=== PATIENT | female | born 1940 | race Caucasian/White ===

== ENCOUNTER 2022-04-11 07:52 | Day surgery (SDC) | payer OTHER, SELFPAY ==
[2022-04-11] VITALS (30 sets, daily range): BP systolic 103–162; BP diastolic 56–113; PULSE 61–108; RESP 16–20; TEMP 35.2–36.5; O2SAT 92–100; BMI 31.0
[2022-04-11] MEDS: fentaNYL 100 MCG/2 ML inj IVP (08:03)
[2022-04-11] MEDS: SODIUM CHLORIDE 0.9 % (FLUSH) 10 ML SYRINGE IVF (08:15)
[2022-04-11] MEDS: ACETAMINOPHEN 500 MG TABLET 1000 MG PO ×3 (08:15→22:55)
[2022-04-11] MEDS: LACTATED RINGERS 1000 ML 1,000 ML 100 ML IV (08:15)
[2022-04-11] MEDS: OXYCODONE (CR) 10 MG TAB.ER.12H PO (08:15)
[2022-04-11] MEDS: CELECOXIB 200 MG CAPSULE PO ×2 (08:15→21:01)
--- NOTE | 2022-04-11 08:30 | SUR.PREOP ---
TIME?OUT:?0831 PT/Teresa HOLLAND RN/Roopa WILL MDA?VERIFICATION?OF?SURGICAL?SITE,?PROCEDURE,?AND?CONSENT OBTAINED?PRIOR?TO?INVASIVE?PROCEDURE.
[2022-04-11] MEDS: MIDAZOLAM HCL 1 MG/ML inj IVP (08:31)
--- NOTE | 2022-04-11 08:58 | CRLHL7_ITS ---
For Patients: As a result of the Cures Act, medical imaging exams and procedure reports are released immediately into your electronic medical record. You may view this report before your referring provider. If you have questions, please contact your health care provider. INDICATION: Post operative right total knee arthroplasty TECHNIQUE: Knee radiograph 2 views right COMPARISON: None FINDINGS: Bone: No acute fractures or aggressive bone lesions are identified. Joint: The patient is status post a total knee arthroplasty with patellar resurfacing. No significant knee effusion is seen. Soft tissue: Anterior subcutaneous gas and joint gas are present from recent surgery. No radiopaque foreign bodies are seen. IMPRESSION: 1. There is an unremarkable postoperative appearance of the knee arthroplasty. Dictated by: Hermes Hameed MD @ 04/11/2022 13:18:14 (Electronically Signed)
[2022-04-11] MEDS: CEFAZOLIN 2 GM INJ IVP (09:05)
--- NOTE | 2022-04-11 09:36 | SUR.OPER ---
PATIENT QUESTIONS ANSWERED SATISFACTORILY PREOPERATIVELY.? PATIENT BROUGHT TO OR #3 PER CART AFTER BLOCK.? Patient positioned supine on OR #3 bed.?The perioperative?team supported arms bilaterally on arm boards.? Final approval of positioning by surgeon.?
--- NOTE | 2022-04-11 09:58 | SUR.OPER ---
RIGHT KNEE IRRIGATED W/3000cc NACL BAG AT 09:51.
--- NOTE | 2022-04-11 10:21 | PM.ORPRC ---
Procedure Note Date of procedure: 04/11/22 Procedure: PREOPERATIVE DIAGNOSIS: 1. Right knee osteoarthritis, primary, severe POSTOPERATIVE DIAGNOSIS: 1. Right knee osteoarthritis, primary, severe PROCEDURE: 1. Right total knee arthroplasty SURGEON: Michael Escamilla MD. FINAL INSTALLER INSPECTOR: Matheus Torres PA-C - Of note, a skilled commercial lending assistant was critical for this case to aid in patient positioning, tissue retraction, limb manipulation/positioning, and closure. ANESTHESIA: Spinal anesthetic IMPLANTS: DePuy J&J all cemented TKA - Attune PS femur size 4 regular, size for tibia, 5 poly spacer, 35 mm patella TOURNIQUET: 90 min at 300 torr EBL: 50 ml COMPLICATIONS: None evident INDICATIONS: The patient is a pleasant 81-year-old female who has experienced severe right knee pain and difficulty bearing weight. Workup included x-rays which revealed severe osteoarthrosis in the knee. Given the deformity, the dysfunction, and the pain, as well as the failure of nonoperative management, recommendation was made for surgery. FINDINGS: Grade 4 chondromalacia patellofemoral compartment and medial compartment with [id number] erosions and grooving into the femur. Moderate effusion upon entering the joint. Significant chondromalacia lateral compartment as well. DESCRIPTION OF PROCEDURE: Following a thorough discussion of risks, benefits, and alternatives consent was obtained and the right knee was marked. The patient was brought to the operating room and placed supine on the operating table. Induction of anesthesia was undertaken. 1 g IV Ancef and 1 g tranexamic acid was administered within 1 hr of incision preoperatively. Proper time-out was performed identifying proper patient, site, procedure. The operative extremity was prepped and draped in the appropriate sterile fashion using ChloraPrep after the patient was positioned supine with all bony prominences well padded. A longitudinal, anterior, midline skin incision was made starting approximately 3cm proximal to the superior pole of the patella and advanced distal to the tibial tubercle. A median parapatellar arthrotomy was created. A medial subperiosteal sleeve was created with knife, delgadillo elevator and curved osteotome. The retropatellar fatpad was resected and the synovium in the suprapatellar pouch excised to visualize the anterior femoral cortex. Femoral preparation was performed via an intramedullary guide. Step drill allowed access into the femoral canal. The distal cutting guide was placed with 5? of valgus and 10 mm cut on the distal femur. Femur was sized using a anterior referencing guide in 3? of external rotation. This found have a best fit with the sizing noted above. The 4 in 1 cutting block was then placed, and the distal femur shaped accordingly. The box cut was then created and the trial implant inserted to confirm appropriate fit. We turned our attention to the proximal tibia. Extramedullary guide was utilized for cutting with the goal of being 90 degree cut from the mechanical axis of the tibia in the varus/valgus plane utilizing tibial crest as the primary alignment. Initially a 2 mm resection was performed from the medial tibial plateau. Ultimately, balancing was achieved in both flexion and extension in both varus and valgus. The knee was able to achieve full extension as well comfortably. The patella was initially measured and found have a thickness of 17 mm. It was resected back to approximately 14 mm. It was sized to be a best fit with as noted above. This was drilled, trial placed. All trials were placed and found to have an excellent stability and balance. At this stage, trial implants were removed, the knee was thoroughly irrigated with normal saline, and the cement was mixed. After irrigation, the knee was thoroughly dried, and cement placed, with the real tibial and femoral implants placed along with the patella. Trial poly spacer was placed and confirmed to have excellent range of motion and full extension, and the real poly spacer opened and inserted. All extra cement was removed, and a 3 min Betadine soak performed. Finally, a final irrigation round with normal saline was performed. Closure performed with 0 Vicryl and #0 Stratafix for the quad tendon/retinaculum. 2-0 Vicryl for the subcutaneous and 4-0 Stratafix for subcuticular closure. Dressings were applied and the patient was awoken from anesthesia after the tourniquet deflated and transferred the PACU in stable condition. A skilled commercial lending assistant was critical for this case to aid in patient positioning, tissue retraction, bone exposure, limb manipulation/positioning, patient safety, and closure. PLAN: 1. Weight bear as tolerated operative extremity. 2. 23 hr perioperative antibiotics. 3. Ice. 4. PT/OT consults for ambulation assistance/mobility education. 5. Social work consult for discharge planning. 6. DVT prophylaxis with at SCDs, Anibal Hose, and aspirin twice daily.
--- NOTE | 2022-04-11 11:16 | W.ANESCHARGE ---
Anesthesia Charges Start Date/Time Anesthesia Start Date: 04/11/22 Anesthesia Start Time: 08:54 Stop Date/Time Anesthesia Stop Date: 04/11/22 Anesthesia Stop Time: 11:15 Summary Emergency: No Extremes of Age: Over 70-CPT 90079
[2022-04-11] MEDS: ONDANSETRON 2 MG/ML inj 4 MG IVP ×4 (11:21→17:33)
--- NOTE | 2022-04-11 11:56 | W.PM.NB ---
Nerve Block Nerve Block Date Seen: 04/11/22 Type of block requested by surgeon for post-operative analgesia: adductor canal Side: right Time out performed: Yes Verification of patient name: Yes Verification of date of : Yes Site marking: site marked Name of person performing procedure: Dutch Continuous monitoring Was continuous monitoring of O2 sat, B/P, cracker dough mixer, recorded every 15 minutes?: Yes Procedure Checklist: sterile prep, needles and gloves Ultrasound guided. Images saved: Yes Medications given in 5ml increments after negative aspiration: Ropivicaine %: 0.5 mL: 20 Needle gauge: 22 Decadron (mg): 10 Precedex (mcg): 25 Patient tolerated procedure well: Yes Additional comments: Needle noted adjacent to nerve Block Charges Block Charge (with Pro Fee): Femoral Nerve Use of Ultrasound Machine for Block: Yes- US Guidance/pain block
--- NOTE | 2022-04-11 11:57 | W.PM.NB ---
Nerve Block Nerve Block Date Seen: 04/11/22 Type of block requested by surgeon for post-operative analgesia: geniculars Time out performed: Yes Verification of patient name: Yes Verification of date of : Yes Site marking: site marked Name of person performing procedure: Dutch Continuous monitoring Was continuous monitoring of O2 sat, B/P, director of cardiac cath lab, recorded every 15 minutes?: Yes Procedure Checklist: sterile prep, needles and gloves Medications given in 5ml increments after negative aspiration: Ropivicaine %: 0.5 mL: 9 Needle gauge: 25 Patient tolerated procedure well: Yes Block Charges Block Charge (with Pro Fee): Genicular Nerve Block Use of Ultrasound Machine for Block: No
--- NOTE | 2022-04-11 11:57 | W.ANESCHARGE ---
Anesthesia Charges Start Date/Time Anesthesia Start Date: 04/11/22 Anesthesia Start Time: 08:54 Stop Date/Time Anesthesia Stop Date: 04/11/22 Anesthesia Stop Time: 11:15 Summary Emergency: No Extremes of Age: Over 70-CPT 44923
[2022-04-11] MEDS: LACTATED RINGERS 1000 ML 1,000 ML 75 ML IV ×2 (14:28→17:33)
[2022-04-11] MEDS: OXYCODONE 5 MG TABLET PO ×2 (14:30→19:07)
[2022-04-11] MEDS: CEFAZOLIN 1 GM in 0.9 % SODIUM CHLORIDE Mini-bag 100 ML IVPB ×2 (14:31→22:54)
--- NOTE | 2022-04-11 16:55 | P.IMCN_ITS ---
Date of Consult Patient: Other (Formerly [facility], [facility]) Consult date: 04/11/22 Requesting Physician: Orthopedics Primary Care Provider: Not a Local Provider Consult Narrative Reason for consult: hypertension, hyperlipidemia Narrative: Josselin Schuler is a 81 year old female who underwent elective right total knee arthroplasty today for severe osteoarthritis that was causing her constant right knee pain. The pain was worse when she was ambulating. Her daughter, Kat is with her tonight. Josselin notes that Kat lives nearby and will help her at home. 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 Review of Systems Status of ROS: Reports: 6 or more systems reviewed and unremarkable except as noted in History and below [facility] Medical History (Updated 04/11/22 @ 17:06 by Neema Chandler MD) Abnormal heart rate Bronchitis Carpal tunnel syndrome of right wrist Colon polyp DJD (degenerative joint disease) Encounter for screening for severe acute respiratory syndrome coronavirus 2 (SARS-CoV-2) infection GERD (gastroesophageal reflux disease) H/O vaginal delivery Hiatal hernia Hyperlipidemia Hypertension Osteopenia Scoliosis Surgical History (Updated 04/11/22 @ 17:06 by Neema Chandler MD) History of carpal tunnel surgery of right wrist (~12/21/20) History of esophagogastroduodenoscopy (EGD) History of tubal ligation S/P Mohs surgery for basal cell carcinoma Status post cataract extraction and insertion of intraocular lens of left eye Family History (Updated 04/11/22 @ 17:10 by Neema Chandler MD) Mother Alcoholism Father Stroke Brother Lung cancer CHF (congestive heart failure) Sister Atrial fibrillation Brother Parkinsonism Dementia Clot Brother of unknown cause Social History (Updated 04/11/22 @ 17:11 by Neema Chandler MD) Narrative: Full code, does not want to be on long-term life support. Smoking Status: Former smoker What tobacco products do you use: cigarettes Smoking quit date/years: >15 years ago How often do you have a drink containing alcohol: monthly or less Alcohol type: wine How many standard drinks containing alcohol do you have on a typical day: 1 or 2 How often do you have six or more drinks on one occasion: Never AUDIT-C Alcohol total score: 1 Non-prescribed substance use: denies use and over the counter (eg: immodium) Non-prescribed substance use details: Aleve prn, Tylenol, Zyrtec Caffeine: Yes (coffee, 2-3 cups/day) Are you using contraception or practicing any form of control: No Meds Home Medications and Allergies Home Medications Medication Instructions Recorded Confirmed Type carvedilol 3.125 mg tablet 3.125 mg PO BID 03/29/22 04/11/22 History rosuvastatin 10 mg tablet 10 mg PO DAILY 03/29/22 04/11/22 History valsartan 160 mg tablet 160 mg PO BID 03/29/22 04/11/22 History Allergies Allergy/AdvReac Type Severity Reaction Status Date / Time azithromycin [From Zithromax] Allergy Unknown Verified 04/11/22 08:05 codeine Allergy Unknown Verified 04/11/22 08:05 lisinopril Allergy Unknown Verified 04/11/22 08:05 omeprazole Allergy Unknown Verified 04/11/22 08:05 Exam Narrative: Exam Narrative: General: No acute distress. Awake alert oriented x3. HEENT: Normocephalic atraumatic, pupils equally round and reactive to light and accommodation. Oropharynx clear. Mucous membranes are moist. No cervical lymphadenopathy, thyromegaly or carotid bruits. No JVD. Cardiovascular: Regular rate and rhythm. No murmurs, gallops, or rubs. Chest: No increased work of breathing. Clear to auscultation bilaterally. No crackles or wheezes. Abdomen: Bowel sounds present. Soft, nondistended, nontender. No hepatosplenomegaly or masses. Extremities: No pedal edema, no cyanosis or clubbing. Right knee bandage is clean, dry and intact. Skin: No jaundice, no pallor, no rashes. Neuro: Grossly intact. No focal deficits. Const: Vital Signs, click to edit/add: Vital Signs - 24 hr 04/11/22 08:11 04/11/22 08:32 04/11/22 08:35 Temperature 97.7 F Pulse Rate 103 H 84 71 Pulse Rate [Pulse Oximeter] Respiratory Rate 18 16 16 Blood Pressure 157/92 H 155/66 H 127/67 Blood Pressure [Ri ght Arm] Pulse Oximetry 99 100 100 04/11/22 08:45 04/11/22 11:10 04/11/22 11:15 Temperature 97.6 F Pulse Rate 73 77 74 Pulse Rate [Pulse Oximeter] Respiratory Rate 16 16 16 Blood Pressure 103/56 L 119/57 L 108/63 Blood Pressure [Ri ght Arm] Pulse Oximetry 100 97 97 04/11/22 11:20 04/11/22 11:25 04/11/22 11:30 Temperature Pulse Rate 77 77 77 Pulse Rate [Pulse Oximeter] Respiratory Rate 16 16 16 Blood Pressure 112/67 113/67 120/75 Blood Pressure [Ri ght Arm] Pulse Oximetry 96 95 95 04/11/22 11:35 04/11/22 11:40 04/11/22 11:45 Temperature 97.6 F Pulse Rate 71 77 77 Pulse Rate [Pulse Oximeter] Respiratory Rate 16 16 16 Blood Pressure 126/75 131/69 126/66 Blood Pressure [Ri ght Arm] Pulse Oximetry 93 95 95 04/11/22 11:50 04/11/22 11:55 04/11/22 12:00 Temperature Pulse Rate 77 77 77 Pulse Rate [Pulse Oximeter] Respiratory Rate 16 16 16 Blood Pressure 123/69 138/69 138/69 Blood Pressure [Ri ght Arm] Pulse Oximetry 95 93 93 04/11/22 12:10 04/11/22 12:15 04/11/22 12:30 Temperature 97.3 F L Pulse Rate 73 61 71 Pulse Rate [Pulse Oximeter] Respiratory Rate 16 16 16 Blood Pressure 140/61 H 143/76 H 140/76 H Blood Pressure [Ri ght Arm] Pulse Oximetry 93 99 97 04/11/22 12:45 04/11/22 13:00 04/11/22 13:30 Temperature Pulse Rate 67 68 65 Pulse Rate [Pulse Oximeter] Respiratory Rate 16 16 16 Blood Pressure 153/74 H 143/77 H 149/65 H Blood Pressure [Ri ght Arm] Pulse Oximetry 97 93 94 04/11/22 14:00 04/11/22 14:30 Temperature 96.2 F L 96.2 F L Pulse Rate 83 Pulse Rate [Pulse Oximeter] 83 Respiratory Rate 16 16 Blood Pressure Blood Pressure [Ri ght Arm] 143/113 H 150/83 H Pulse Oximetry 98 Assessment and Plan Assessment and plan (1) S/P total knee arthroplasty: Problem comment: Right knee Status: Acute Assessment and Plan: Pain is well controlled. Cares per Ortho. Planning on discharge home tomorrow. Twice a day aspirin for VTE prophylaxis for 6 weeks. (2) Hypertension: Status: Acute Assessment and Plan: Continue carvedilol and valsartan. (3) Hyperlipidemia: Status: Acute Assessment and Plan: Continue rosuvastatin.
--- NOTE | 2022-04-11 19:33 | PC.NURSE ---
End of shift-- Pt arrived from [facility] after recovering there for 2 hours at approximately 1400. VSS, though initially hypertensive, and afebrile. SPO2 maintained >90% on RA while awake, though occasionally patient's O2 sats dropped to 80s while pt is sleeping. Pain appears well managed with 2.5mg Oxycodone as needed in addition to scheduled Tylenol. Dressing to right knee is C/D/I and CMS WNL. Cryocuff in place, but some swelling was noted. LS CTA. HR irregular per patient's baseline. Pt has c/o nausea off and on since arrival from PACU that appears managed with PRN Zofran. Pt did have 1x 200ml emesis this shift. She was advanced to regular diet, but has really only tolerated clear liquids thus far. BS+ x4, though somewhat hypoactive and pt has not yet passed flatus. She was up to the chair and BR with assist of 1, belt and walker and tolerated it well. She voided post op, but it was unmeasured. Report to GHULAM Kahn.
[2022-04-11] MEDS: ASPIRIN 81 MG TABLET EC PO (21:01)
[2022-04-11] MEDS: SENNOSIDES 1 TAB TABLET 2 TAB PO (21:01)
[2022-04-11] MEDS: carvediloL 6.25 MG TABLET 3.125 MG PO (21:01)
[2022-04-11] MEDS: VALSARTAN 80 MG TABLET 160 MG PO (21:02)
[2022-04-12 03:00] VITALS: BP 134/76; PULSE 96; RESP 20; TEMP 36.1; O2SAT 95
[2022-04-12] MEDS: OXYCODONE 5 MG TABLET PO ×2 (03:32→08:00)
--- NOTE | 2022-04-12 06:26 | PC.NURSE ---
shift note : Pt A&O. Afebrile. Oxygen saturations low to mid 90's on room air. PRN Oxycodone and scheduled Tylenol given for pain with pt reporting relief. Surgical dressing C/D/I, cryocuff in place. Up to BR with 1 assist and a walker and tolerating well. Denies N/V, SOB, and CP.
[2022-04-12] MEDS: CEFAZOLIN 1 GM in 0.9 % SODIUM CHLORIDE Mini-bag 100 ML IVPB (06:36)
[2022-04-12] MEDS: ACETAMINOPHEN 500 MG TABLET 1000 MG PO ×2 (06:36→11:34)
[2022-04-12 07:17] LABS: Chloride* 104 mmol/L (96-114); Potassium* 5.1 mmol/L (3.6-5.1); Sodium* 131 mmol/L (135-149)
[2022-04-12 07:20] LABS: Blood Urea Nitrogen* 31 mg/dL (7-30); Carbon Dioxide* 23 mmol/L (20-32); Creatinine* 1.1 mg/dL (0.5-1.5); Est. Creatinine Clearance* 28.81; Estimated Glomerular Filt Rate 50 ml/min
--- NOTE | 2022-04-12 07:20 | PM.DS1 ---
DS: Providers Provider Time Seen by Provider: 09:00 Date Seen: 04/12/22 Date of admission: 04/11/22 Primary care physician: Not a Local Provider Consults: 04/11/22 12:16 Consult to Physical Therapy [CONS] Routine Comment: Ambulate in the colindres today. Reason(s) for PT Consult:: Evaluate and Treat Any Restrictions?:: No Restrictions Consult to Physical Therapy [CONS] Routine Comment: Ambulate in the colindres today. Reason(s) for PT Consult:: TKA TX Protocol POD#0 Any Restrictions?:: See Comment Comment: See nursing activity order for any restrictions. Consult to Physician [CONS] Routine Comment: Consulting Provider: Hospitalists Has provider been notified: No Consult to Sizing Machine Operator [CONS] Routine Comment: Reason for Consult:: Discharge Planning Needs Attending Physician on discharge: Michael Escamilla MD Date of Discharge: 04/12/22 DS: Diagnosis Discharge Diagnosis (1) S/P total knee arthroplasty: Status: Acute Problem details: Right knee (2) Hypertension: Status: Chronic (3) Hyperlipidemia: Status: Chronic DS: Summary Hospital Course Hospital Course: This is an 81-year-old female who underwent an elective right total knee arthroplasty Dr. Ugarte for osteoarthritis of the knee. She has done well postoperatively. She is having flatus postop day 1, ambulating with a walker and stable for discharge home. She did have some mild nausea today for which she will be getting some ondansetron orally. She otherwise has no complaints. Knee bandage is intact and clean and dry. Her and daughter are going to help her at home. Status at Discharge Functional status at discharge: uses cane/walker Time Spent with Patient Time attestation: Total time spent providing and/or coordinating discharge services: Time spent: Less than 30 minutes Exam Narrative: Exam Narrative: General: No acute distress. Awake alert oriented. Cardiovascular: Regular rate and rhythm. No murmurs, gallops, or rubs. Chest: No increased work of breathing. Clear to auscultation bilaterally. No crackles or wheezes. Abdomen: Bowel sounds present. Soft, nondistended, nontender. No hepatosplenomegaly or masses. Extremities: No pedal edema. Right knee bandage is clean, dry and intact. Const: Vital Signs, click to edit/add: Vital Signs - 24 hr 04/11/22 08:11 04/11/22 08:32 04/11/22 08:35 Temperature 97.7 F Pulse Rate 103 H 84 71 Pulse Rate [Pulse Oximeter] Respiratory Rate 18 16 16 Blood Pressure 157/92 H 155/66 H 127/67 Blood Pressure [Ri ght Arm] Pulse Oximetry 99 100 100 04/11/22 08:45 04/11/22 11:10 04/11/22 11:15 Temperature 97.6 F Pulse Rate 73 77 74 Pulse Rate [Pulse Oximeter] Respiratory Rate 16 16 16 Blood Pressure 103/56 L 119/57 L 108/63 Blood Pressure [Ri ght Arm] Pulse Oximetry 100 97 97 04/11/22 11:20 04/11/22 11:25 04/11/22 11:30 Temperature Pulse Rate 77 77 77 Pulse Rate [Pulse Oximeter] Respiratory Rate 16 16 16 Blood Pressure 112/67 113/67 120/75 Blood Pressure [Ri ght Arm] Pulse Oximetry 96 95 95 04/11/22 11:35 04/11/22 11:40 04/11/22 11:45 Temperature 97.6 F Pulse Rate 71 77 77 Pulse Rate [Pulse Oximeter] Respiratory Rate 16 16 16 Blood Pressure 126/75 131/69 126/66 Blood Pressure [Ri ght Arm] Pulse Oximetry 93 95 95 04/11/22 11:50 04/11/22 11:55 04/11/22 12:00 Temperature Pulse Rate 77 77 77 Pulse Rate [Pulse Oximeter] Respiratory Rate 16 16 16 Blood Pressure 123/69 138/69 138/69 Blood Pressure [Ri ght Arm] Pulse Oximetry 95 93 93 04/11/22 12:10 04/11/22 12:15 04/11/22 12:30 Temperature 97.3 F L Pulse Rate 73 61 71 Pulse Rate [Pulse Oximeter] Respiratory Rate 16 16 16 Blood Pressure 140/61 H 143/76 H 140/76 H Blood Pressure [Ri ght Arm] Pulse Oximetry 93 99 97 04/11/22 12:45 04/11/22 13:00 04/11/22 13:30 Temperature Pulse Rate 67 68 65 Pulse Rate [Pulse Oximeter] Respiratory Rate 16 16 16 Blood Pressure 153/74 H 143/77 H 149/65 H Blood Pressure [Ri ght Arm] Pulse Oximetry 97 93 94 04/11/22 14:00 04/11/22 14:30 04/11/22 15:00 Temperature 96.2 F L 96.2 F L 96.2 F L Pulse Rate 83 Pulse Rate [Pulse Oximeter] 83 83 Respiratory Rate 16 16 16 Blood Pressure Blood Pressure [Ri ght Arm] 143/113 H 150/83 H 118/56 L Pulse Oximetry 98 98 04/11/22 16:00 04/11/22 17:00 04/11/22 18:00 Temperature 95.4 F L 96.2 F L 96.2 F L Pulse Rate Pulse Rate [Pulse Oximeter] 91 92 106 H Respiratory Rate 16 16 18 Blood Pressure Blood Pressure [Ri ght Arm] 106/94 H 135/72 162/87 H Pulse Oximetry 94 92 95 04/11/22 19:55 04/11/22 20:00 04/11/22 23:00 Temperature 97 F L 97 F L 97 F L Pulse Rate Pulse Rate [Pulse Oximeter] 102 H 108 H Respiratory Rate 18 18 20 Blood Pressure Blood Pressure [Ri ght Arm] 133/90 H 133/90 H 143/83 H Pulse Oximetry 95 95 94 04/12/22 03:00 Temperature 97 F L Pulse Rate Pulse Rate [Pulse Oximeter] 96 Respiratory Rate 20 Blood Pressure Blood Pressure [Ri ght Arm] 134/76 Pulse Oximetry 95 DS: Data Data Completed and Pending Completed studies during hospitalization: Ordering Physician: Michael Escamilla M.D. Date of Service: 04/11/22 Procedure(s): XR knee RT 2V Accession Number(s): [id number] cc: Michael Escamilla M.D.; Provider,Not a Local ~ For Patients: As a result of the Cures Act, medical imaging exams and procedure reports are released immediately into your electronic medical record. You may view this report before your referring provider. If you have questions, please contact your health care provider. INDICATION: Post operative right total knee arthroplasty TECHNIQUE: Knee radiograph 2 views right COMPARISON: None FINDINGS: Bone: No acute fractures or aggressive bone lesions are identified. Joint: The patient is status post a total knee arthroplasty with patellar resurfacing. No significant knee effusion is seen. Soft tissue: Anterior subcutaneous gas and joint gas are present from recent surgery. No radiopaque foreign bodies are seen. IMPRESSION: 1. There is an unremarkable postoperative appearance of the knee arthroplasty. Dictated by: Hermes Hameed MD @ 04/11/2022 13:18:14 (Electronically Signed) Labs on day of discharge: Laboratory Tests 04/12/22 04/12/22 04/11/22 Range/Units 06:19 06:19 Unknown WBC 7.68 (4.50-11.00) K/uL RBC 3.37 L (4.00-5.20) m/uL Hgb 9.8 L (12.0-16.0) gm/dL Hct 30.4 L (33.0-51.0) % MCV 90 (80-100) fL MCH 29 (26-34) pg MCHC 32 (32-36) gm/dL RDW Coeff of Divya 14.4 (11.5-15.5) % Plt Count 183 (140-440) K/uL Neut % (Auto) 77.3 H (42.0-72.0) % Lymph % (Auto) 14.1 L (20-44) % [place] % (Auto) 8.3 (0.0-11.0) % Eos % (Auto) 0.0 (0.0-7.0) % Baso % (Auto) 0.0 (0.0-3.0) % Neut # (Auto) 5.90 (1.7-7.0) K/uL Lymph # (Auto) 1.10 (0.90-2.90) K/uL [place] # (Auto) 0.60 (0.00-0.90) K/UL Eos # (Auto) 0.00 (0.00-0.50) K/uL Baso # (Auto) 0.00 (0.00-0.30) K/uL Abs Immat Gran (auto) 0.02 (0.00-0.30) K/uL Sodium 131 L Cancelled Potassium 5.1 (3.6-5.1) mmol/L Chloride 104 (96-114) mmol/L Carbon Dioxide 23 (20-32) mmol/L BUN 31 H (7-30) mg/dL Creatinine 1.1 (0.5-1.5) mg/dL Estimated Creat Clear 28.81 Estimated GFR 50 ml/min Glucose 137 H (60-115) mg/dL Calcium 8.6 (8.4-10.6) mg/dL Discharge Plan Discharge Disposition: Home, Self-Care Discharging Surgeon: Michael Escamilla Follow-Up Appointment: MondayApril 19 at 10:00 AM with Matheus Sweeney Prescriptions: New acetaminophen 500 mg capsule 500 - 1,000 mg PO Q6H MDD 4000mg PRNQty: 100 0RF oxycodone 5 mg tablet 2.5 - 5 mg PO Q4-6H MDD 6 PRN (Reason: pain) Qty: 42 0RF Rx Instructions: Take as needed for postop pain: 2.5mg mild pain, 5mg moderate-severe pain; wean as tolerated. sennosides-docusate sodium [Senna-S] 8.6-50 mg tablet 1 - 2 tab-cap PO BID PRN (Reason: constipation) Qty: 60 0RF Rx Instructions: Hold medication if experiencing loose stools. aspirin 81 mg tablet,delayed release (DR/EC) 81 mg PO BID Qty: 60 0RF Rx Instructions: Medication to help prevent blood clots postoperatively; take TWICE daily. celecoxib 200 mg capsule 200 mg PO BID Qty: 60 0RF Rx Instructions: Anti-inflammatory medication Continued valsartan 160 mg tablet 160 mg PO BID 0RF carvedilol 3.125 mg tablet 3.125 mg PO BID 0RF Rx Instructions: must administer with a meal/food rosuvastatin 10 mg tablet 10 mg PO DAILY 0RF Activity Level: No Restrictions, Weight Bearing as Tolerated, Use Cane and Use Walker Activity Detail: Wound: ?Do not remove original dressing; we will remove this at first postop visit in 1 week. Only remove dressing if integrity is in question. ?No immersing wound in water; showering okay; light scrub with your hand and body soap, rinse, dab dry ?Sutures are under the skin, will dissolve; allow surgical glue to come off naturally; do not scrub the wound or apply ointments/lotions ?Call our office with any redness that streaks, excessive drainage from the wound, or wound gapping. Ice/Elevate: ?Ice as needed for swelling and discomfort (cryocuff or ice pack); elevate frequently above the heart ANANDA socks: ?Wear for 1 month, remove for 1 hour 3 times per day ?These are frustrating to take on/off, but are important for blood clot prevention for 1 month after surgery Blood Clot Prevention (DVT): ?Medication: 81 mg aspirin by mouth twice daily Driving: ?Do not drive while taking narcotic pain medication ?Anticipate 4-6 weeks no driving if operative leg is driving leg Dental: ?No elective dental work for 6 months post-op. If there is an urgent/emergent dental need, contact our office for an antibiotic prescription. Smoking/Alcohol: ?Do not smoke; do no drink alcohol especially when taking postoperative oral narcotic medication Seek Care from you Primary Care Provider if you experience the following issues in the postoperative phase and beyond: ?Bacterial infections such as: pneumonia, bacterial skin infection (cellulitis), UTI, high fever, chills unrelated to the operative body part - call your primary care physician urgently for treatment in hopes to protect your health and the metal implant. Referrals: ?PT, OT per patient preference - evaluate treat total knee arthroplasty protocol (the training, ROM, ADLs, knee-high Ananda socks) Follow up: ?Ortho surgeon follow-up in 6 weeks; repeat radiographs three views right knee ?PA-C visit in 1 week *If there are any acute concerns regarding your surgery, please call our orthopedic clinic ([phone]) Discharge Diet: Regular Patient Instructions: Surgical Site Infections (DC) Forms: Work/Release Restrictions Follow-up: Provider,Not a Local [Primary Care Provider] - (Patient is to call and schedule as needed.) Discharge Orders: Discharge Order (Routine); Ordered 04/12/22 Ordered By: Matheus Torres
[2022-04-12 07:21] LABS: Calcium* 8.6 mg/dL (8.4-10.6); Glucose* 137 mg/dL (60-115)
[2022-04-12 07:50] LABS: Hematocrit 30.4 % (33.0-51.0); Hemoglobin* 9.8 gm/dL (12.0-16.0); Immature Granulocytes Abs Auto 0.02 K/uL (0.00-0.30); Lymphocytes Percent Auto 14.1 % (20-44); Mean Corpuscular HGB Conc 32 gm/dL (32-36); Mean Corpuscular Hemoglobin 29 pg (26-34); Mean Corpuscular Volume 90 fL (80-100); Monocytes Percent Auto 8.3 % (0.0-11.0); Neutrophils Percent Auto 77.3 % (42.0-72.0); Platelet Count* 183 K/uL (140-440); RDW Coefficient of Variation % 14.4 % (11.5-15.5); Red Blood Count 3.37 m/uL (4.00-5.20); White Blood Count* 7.68 K/uL (4.50-11.00)
[2022-04-12 08:00] VITALS: BP 135/62; PULSE 90; RESP 16; TEMP 35.5; O2SAT 98
[2022-04-12 08:02] LABS: Slide Review Reflex No
[2022-04-12] MEDS: ASPIRIN 81 MG TABLET EC PO (08:51)
[2022-04-12] MEDS: ROSUVASTATIN CALCIUM 10 MG TABLET PO (08:51)
[2022-04-12] MEDS: SENNOSIDES 1 TAB TABLET 2 TAB PO (08:52)
[2022-04-12] MEDS: carvediloL 6.25 MG TABLET 3.125 MG PO (08:53)
[2022-04-12] MEDS: ONDANSETRON 2 MG/ML inj 4 MG IVP (09:03)
[2022-04-12] MEDS: VALSARTAN 80 MG TABLET 160 MG PO (09:58)
[2022-04-12] MEDS: CELECOXIB 200 MG CAPSULE PO (09:58)
[2022-04-12] MEDS: ONDANSETRON ODT 4 MG TAB PO (09:59)
[2022-04-12 11:48] VITALS: BP 137/58; RESP 18; TEMP 36.2; O2SAT 96
--- NOTE | 2022-04-12 11:58 | PC.NURSE ---
shift note: vss stable. pt up 1/walker with steady gait. incision site covered with intact mepilex. Reviewed dc instructions and copies sent with pt at dc. IV dc'd intact this a.m in Lt hand. LS clr. IS to 1999. Belongings reviewed and sent with pt at dc. cryo cuff intact and sent with pt at dc.
--- NOTE | 2022-04-12 12:21 | P.ORPN_ITS ---
Subjective Subjective Date Seen: 04/12/22 Principal diagnosis: Status postop day 1 right knee Interval history: Patient reports doing well. No acute events over night. Pain managed with scheduled /PRN medications and ice. DVT prophylaxis 81 mg aspirin by mouth t wice daily, bilateral knee high Anibal stockings, and SCDs. Denies fevers, chills, aches, N/V, CP, SOB/BUTTS, tachycardia, or lightheadedness. She inquires about taking tramadol verses oxycodone; has fear of addiction with her other chronic pain. Ortho Exam Narrative Exam Narrative: -Patient appears comfortable in recliner; no apparent acute distress -Alert and oriented times 3 -Operative knee swollen; soft tissues supple; no obvious erythema. Ecchymosis minimal. Warmth appropriate -Surgical dressing clean, dry, intact; no obvious drainage, no erythematous streaking peripheral to the bandage -bilateral calf soft, supple; no significant swelling, edema, tenderness, erythema, discoloration, warmth, or palpable cords -2+ DP/PT pulses, intact dermatomes and myotomes distally (5/5 strength) Const Vital Signs, click to edit/add: Vital Signs - 24 hr 04/11/22 12:30 04/11/22 12:45 04/11/22 13:00 Temperature Pulse Rate 71 67 68 Pulse Rate [Pulse Oximeter] Respiratory Rate 16 16 16 Blood Pressure 140/76 H 153/74 H 143/77 H Blood Pressure [Right Arm] Pulse Oximetry 97 97 93 04/11/22 13:30 04/11/22 14:00 04/11/22 14:30 Temperature 96.2 F L 96.2 F L Pulse Rate 65 83 Pulse Rate [Pulse Oximeter] 83 Respiratory Rate 16 16 16 Blood Pressure 149/65 H Blood Pressure [Right Arm] 143/113 H 150/83 H Pulse Oximetry 94 98 04/11/22 15:00 04/11/22 16:00 04/11/22 17:00 Temperature 96.2 F L 95.4 F L 96.2 F L Pulse Rate Pulse Rate [Pulse Oximeter] 83 91 92 Respiratory Rate 16 16 16 Blood Pressure Blood Pressure [Right Arm] 118/56 L 106/94 H 135/72 Pulse Oximetry 98 94 92 04/11/22 18:00 04/11/22 19:55 04/11/22 20:00 Temperature 96.2 F L 97 F L 97 F L Pulse Rate Pulse Rate [Pulse Oximeter] 106 H 102 H Respiratory Rate 18 18 18 Blood Pressure Blood Pressure [Right Arm] 162/87 H 133/90 H 133/90 H Pulse Oximetry 95 95 95 04/11/22 23:00 04/12/22 03:00 04/12/22 08:00 Temperature 97 F L 97 F L 96 F L Pulse Rate Pulse Rate [Pulse Oximeter] 108 H 96 90 Respiratory Rate 20 20 16 Blood Pressure Blood Pressure [Right Arm] 143/83 H 134/76 135/62 Pulse Oximetry 94 95 98 04/12/22 11:48 Temperature 97.2 F L Pulse Rate Pulse Rate [Pulse Oximeter] Respiratory Rate 18 Blood Pressure Blood Pressure [Right Arm] 137/58 L Pulse Oximetry 96 Assessment and Plan Assessment and plan (1) S/P total knee arthroplasty: Problem details: POD #1 right total knee arthroplasty Status: Acute (2) Hypertension: Status: Chronic (3) Hyperlipidemia: Status: Chronic (4) Anemia due to blood loss, acute: Problem details: Surgically related, hemoglobin 9.8, asymptomatic Status: Acute Plan - Complete 23 hour perioperative antibiotics. - PT/OT consult for education and assistance. - Social work consult for discharge planning - Prescribed analgesics as needed - DVT prophylaxis: 81 mg aspirin by mouth twice daily, bilateral knee high Anibal Hose stockings and SCDs - Anticipation is for discharge to home with spouse today 04/12/2022 if the patient remains medically stable, pain is controlled, and they are safe with mobilization.
--- NOTE | 2022-04-12 12:26 | P.DS_ITS ---
DS: Providers Provider Date Seen: 04/12/22 Date of admission: Med surg recovery 09/11/2022 Primary care physician: Not a Local Provider Consults: 04/11/22 12:16 Consult to Physical Therapy [CONS] Routine Comment: Ambulate in the colindres today. Reason(s) for PT Consult:: Evaluate and Treat Any Restrictions?:: No Restrictions Consult to Physical Therapy [CONS] Routine Comment: Ambulate in the colindres today. Reason(s) for PT Consult:: TKA TX Protocol POD#0 Any Restrictions?:: See Comment Comment: See nursing activity order for any restrictions. Consult to Physician [CONS] Routine Comment: Consulting Provider: Hospitalists Has provider been notified: No Consult to Turnstile Attendant [CONS] Routine Comment: Reason for Consult:: Discharge Planning Needs Attending Physician on discharge: Michael Escamilla MD Date of Discharge: 04/12/22 DS: Diagnosis Discharge Diagnosis (1) S/P total knee arthroplasty: Status: Acute Problem details: POD #1 right total knee arthroplasty (2) Hypertension: Status: Chronic (3) Hyperlipidemia: Status: Chronic (4) Anemia due to blood loss, acute: Status: Acute Problem details: Surgically related, hemoglobin 9.8, asymptomatic DS: Summary Hospital Course Hospital Course: This is an 81-year-old female who underwent an elective right total knee ar throplasty Dr. Ugarte for osteoarthritis of the knee. She has done well postoperatively. She is having flatus postop day 1, ambulating with a walker and stable for discharge home. She did have some mild nausea today for which she will be getting some ondansetron orally. She otherwise has no complaints. Knee bandage is intact and clean and dry. Her and daughter are going to help her at home. The patient has a history of right knee osteoarthritis, primary, severe. After appropriate preoperative evaluation, the patient underwent right total knee arthroplasty. Postoperatively given anticoagulation for deep vein thrombosis prophylaxis. They progressed to PT/OT and were felt ready and prepared for discharged to home with appropriate pain medication and anticoagulation medicat ions. Status at Discharge Functional status at discharge: uses cane/walker Overall status at discharge: patient is progressing back to baseline Time Spent with Patient Time attestation: Total time spent providing and/or coordinating discharge services: Time spent: Greater than 30 minutes Exam Const: Vital Signs, click to edit/add: Vital Signs - 24 hr 04/11/22 12:30 04/11/22 12:45 04/11/22 13:00 Temperature Pulse Rate 71 67 68 Pulse Rate [Pulse Oximeter] Respiratory Rate 16 16 16 Blood Pressure 140/76 H 153/74 H 143/77 H Blood Pressure [Ri ght Arm] Pulse Oximetry 97 97 93 04/11/22 13:30 04/11/22 14:00 04/11/22 14:30 Temperature 96.2 F L 96.2 F L Pulse Rate 65 83 Pulse Rate [Pulse Oximeter] 83 Respiratory Rate 16 16 16 Blood Pressure 149/65 H Blood Pressure [Ri ght Arm] 143/113 H 150/83 H Pulse Oximetry 94 98 04/11/22 15:00 04/11/22 16:00 04/11/22 17:00 Temperature 96.2 F L 95.4 F L 96.2 F L Pulse Rate Pulse Rate [Pulse Oximeter] 83 91 92 Respiratory Rate 16 16 16 Blood Pressure Blood Pressure [Ri ght Arm] 118/56 L 106/94 H 135/72 Pulse Oximetry 98 94 92 04/11/22 18:00 04/11/22 19:55 04/11/22 20:00 Temperature 96.2 F L 97 F L 97 F L Pulse Rate Pulse Rate [Pulse Oximeter] 106 H 102 H Respiratory Rate 18 18 18 Blood Pressure Blood Pressure [Ri ght Arm] 162/87 H 133/90 H 133/90 H Pulse Oximetry 95 95 95 04/11/22 23:00 04/12/22 03:00 04/12/22 08:00 Temperature 97 F L 97 F L 96 F L Pulse Rate Pulse Rate [Pulse Oximeter] 108 H 96 90 Respiratory Rate 20 20 16 Blood Pressure Blood Pressure [Ri ght Arm] 143/83 H 134/76 135/62 Pulse Oximetry 94 95 98 04/12/22 11:48 Temperature 97.2 F L Pulse Rate Pulse Rate [Pulse Oximeter] Respiratory Rate 18 Blood Pressure Blood Pressure [Ri ght Arm] 137/58 L Pulse Oximetry 96 DS: Data Data Completed and Pending Labs on day of discharge: Labs from last 24 hours 04/12/22 04/12/22 04/11/22 06:19 06:19 Unknown WBC 7.68 RBC 3.37 L Hgb 9.8 L Hct 30.4 L MCV 90 MCH 29 MCHC 32 RDW Coeff of Divya 14.4 Plt Count 183 Neut % (Auto) 77.3 H Lymph % (Auto) 14.1 L [place] % (Auto) 8.3 Eos % (Auto) 0.0 Baso % (Auto) 0.0 Neut # (Auto) 5.90 Lymph # (Auto) 1.10 [place] # (Auto) 0.60 Eos # (Auto) 0.00 Baso # (Auto) 0.00 Abs Immat Gran (auto) 0.02 Sodium 131 L Cancelled Potassium 5.1 Chloride 104 Carbon Dioxide 23 BUN 31 H Creatinine 1.1 Estimated Creat Clear 28.81 Estimated GFR 50 Glucose 137 H Calcium 8.6 Discharge Plan Discharge Disposition: Home, Self-Care Discharging Surgeon: Michael Escamilla Follow-Up Appointment: MondayApril 19 at 10:00 AM with Matheus Sweeney Prescriptions: New acetaminophen 500 mg capsule 500 - 1,000 mg PO Q6H MDD 4000mg PRNQty: 100 0RF oxycodone 5 mg tablet 2.5 - 5 mg PO Q4-6H MDD 6 PRN (Reason: pain) Qty: 42 0RF Rx Instructions: Take as needed for postop pain: 2.5mg mild pain, 5mg moderate-severe pain; wean as tolerated. sennosides-docusate sodium [Senna-S] 8.6-50 mg tablet 1 - 2 tab-cap PO BID PRN (Reason: constipation) Qty: 60 0RF Rx Instructions: Hold medication if experiencing loose stools. aspirin 81 mg tablet,delayed release (DR/EC) 81 mg PO BID Qty: 60 0RF Rx Instructions: Medication to help prevent blood clots postoperatively; take TWICE daily. celecoxib 200 mg capsule 200 mg PO BID Qty: 60 0RF Rx Instructions: Anti-inflammatory medication Continued valsartan 160 mg tablet 160 mg PO BID 0RF carvedilol 3.125 mg tablet 3.125 mg PO BID 0RF Rx Instructions: must administer with a meal/food rosuvastatin 10 mg tablet 10 mg PO DAILY 0RF Activity Level: No Restrictions, Weight Bearing as Tolerated, Use Cane and Use Walker Activity Detail: Wound: ?Do not remove original dressing; we will remove this at first postop visit in 1 week. Only remove dressing if integrity is in question. ?No immersing wound in water; showering okay; light scrub with your hand and body soap, rinse, dab dry ?Sutures are under the skin, will dissolve; allow surgical glue to come off naturally; do not scrub the wound or apply ointments/lotions ?Call our office with any redness that streaks, excessive drainage from the wound, or wound gapping. Ice/Elevate: ?Ice as needed for swelling and discomfort (cryocuff or ice pack); elevate frequently above the heart ANANDA socks: ?Wear for 1 month, remove for 1 hour 3 times per day ?These are frustrating to take on/off, but are important for blood clot preventi on for 1 month after surgery Blood Clot Prevention (DVT): ?Medication: 81 mg aspirin by mouth twice daily Driving: ?Do not drive while taking narcotic pain medication ?Anticipate 4-6 weeks no driving if operative leg is driving leg Dental: ?No elective dental work for 6 months post-op. If there is an urgent/emergent dental need, contact our office for an antibiotic prescription. Smoking/Alcohol: ?Do not smoke; do no drink alcohol especially when taking postoperative oral narcotic medication Seek Care from you Primary Care Provider if you experience the following issues in the postoperative phase and beyond: ?Bacterial infections such as: pneumonia, bacterial skin infection (cellulitis), UTI, high fever, chills unrelated to the operative body part - call your primary care physician urgently for treatment in hopes to protect your health and the metal implant. Referrals: ?PT, OT per patient preference - evaluate treat total knee arthroplasty protocol (the training, ROM, ADLs, knee-high Ananda socks) Follow up: ?Ortho surgeon follow-up in 6 weeks; repeat radiographs three views right knee ?PA-C visit in 1 week *If there are any acute concerns regarding your surgery, please call our orthopedic clinic ([phone]) Discharge Diet: Regular Patient Instructions: Acetaminophen (By mouth), Aspirin (By mouth), Oxycodone, Rapid Release (By mouth), Celecoxib (By mouth), Senna (By mouth), Knee Replacement (DC) Forms: Work/Release Restrictions Follow-up: Provider,Not a Local [Primary Care Provider] - (Patient is to call and schedule as needed.) Discharge Orders: Discharge Order (Routine); Ordered 04/12/22 Ordered By: Matheus Torres
== END 2022-04-12 17:17 | disposition home or self-care (01) ==
LOC: OR 08:50 → MEDSURG 14:31
PROVIDERS: Physician Assistant Surgical; Visit Provider Orthopaedic Surgery Sports Medicine
PROC: (CPT 27447; principal; 2022-04-11 10:15)
DX: M17.11 Unilateral primary osteoarthritis, right knee (principal); I10 Essential (primary) hypertension; E78.5 Hyperlipidemia, unspecified; K21.9 Gastro-esophageal reflux disease without esophagitis; M85.80 Other specified disorders of bone density and structure, unspecified site
CPT/HCPCS: 27447; 01402; 36415; 64447; 64454; 73560; 76942; 80048; 84295; 85025; 97110; 97116; 97161; 97165; 97530; 97535; 99100; A9270; C1776; J0690; J1100; J2250; J2405; J2704; J2795; J3010; J7120

== ENCOUNTER 2022-04-19 10:27 | Outpatient (CLI) | payer OTHER, SELFPAY ==
[2022-04-19 14:03] LABS: Chloride* 104 mmol/L (96-114); Sodium* 132 mmol/L (135-149)
[2022-04-19 14:04] LABS: Potassium* 4.9 mmol/L (3.6-5.1)
[2022-04-19 14:06] LABS: Creatinine* 0.9 mg/dL (0.5-1.5); Estimated Glomerular Filt Rate 64 ml/min
[2022-04-19 14:07] LABS: Blood Urea Nitrogen* 23 mg/dL (7-30); Calcium* 8.7 mg/dL (8.4-10.6); Carbon Dioxide* 22 mmol/L (20-32); Glucose* 105 mg/dL (60-115)
== END 2022-04-19 10:28 | disposition home or self-care (01) ==
LOC: FRMREF 10:28
PROVIDERS: Visit Provider Physician Assistant Surgical
DX: D62 Acute posthemorrhagic anemia (principal)
CPT/HCPCS: 80048